=== PATIENT | male | born 1975 | race Caucasian/White ===

== ENCOUNTER 2016-07-15 15:46 | Inpatient (IN) | payer OTHER, MEDICAID ==
[2016-07-10 18:37] VITALS: BMI 25.8
[2016-07-16 08:08] LABS: CHOLESTEROL 134 mg/dL (130-200)
[2016-07-16 08:17] LABS: GLUCOSE,FASTING 86 mg/dL (65-110)
[2016-07-16] MEDS: Multivitamin Therapeutic Tab PO SCH (09:36)
--- NOTE | 2016-07-16 14:47 | PCM.PSYCH ---
Initial Psychiatric Evaluation - Initial Psychiatric Evaluation Type of Admission: Voluntary Legal Status: Capacity (atient has capacity to sign consent for treatment) Chief Complaint (in patient's own words): "I'm feeling very depressed, I am hopeless, I hear voiced telling me to kill myself" Patient's Reaction to Hospitalization: pt was transferred from the medical floor for evaluation and stabilization of depressive symptoms, possible psychosis, possible thoughts of harming self. History of Present Illness and Precipitating Events: shortly patient is 40 year old [place]ian male, long and debilitating h/o alcohol use disorder, h/o one psychiatric admission to the [facility] in 2016, pt is homeless, no social support, does not work, initially pt was admitted to the medical floor for alcohol withdrawal symptoms (pt was found intoxicated in public, pt also might have withdrawal seizures, pt was in , but refused to go to [facility] requested to go to [facility]), pt reported being depressed, suicidal ideation, pt was on 1:1 for suicide precaution, pt was stabilized from the medical standpoint, was transferred to the psychiatric inpatient unit for further evaluation and stabilization, observation and medication titration. Patient was seen today at the treatment team meeting, fair personal hygiene, fair ADLs. 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 Pt said he is stressed out about his financial situation, homelessness, drinking problems, medical problems as well as poor support. Pt said he was feeling depressed, hopeless and helpless, pt also reported to have suicidal thoughts to go to the pharmacy and buy sleeping pills and overdose on it. Pt said he hears voices "female and male, they are telling me to kill myself", pt said that he has no urge to harming self and contracted for safety. pt denied feeling anxious. vitals are stable, there is a fine tremor in UE. Past psych h/o: 3 months ago / [facility] for an SI attempt/overdosed on sleeping medication. Pt. also reported taking 31 pills of Remeron last month/ psych. admission with [facility], h/o detoxes and rehabs. Medical h/o: pt has seizure disorder, head trauma, alcohol withdrawals better. Social h/o: pt is homeless, alcoholic, no insurance, no family. pt denied using drugs, denied smoking Lab Results 07/16/16 07:30: Fasting Glucose 86, Triglycerides 57, Cholesterol 134, LDL Cholesterol Direct 55, HDL Cholesterol 47 Vital Signs Temp Pulse Resp BP 07/16/16 07:40 97.8 F 66 20 114/76 07/16/16 07:38 97.8 F 66 20 Current Medications: Active Medications Generic Name Dose Route Start Last Admin Trade Name Freq PRN Reason Stop Dose Admin Chlordiazepoxide 5 mg 07/15/16 17:10 07/15/16 21:23 Librium PO 5 mg Q8 PRN Administration Agitation Protocol Ferrous Sulfate 324 mg 07/15/16 18:00 07/16/16 13:42 Feosol PO 324 mg TID STEVE Administration Folic Acid 1 mg 07/16/16 08:00 07/16/16 09:36 Folic Acid PO 1 mg DAILY STEVE Administration Levetiracetam 500 mg 07/16/16 08:00 07/16/16 09:36 Keppra PO 500 mg BID STEVE Administration Lorazepam 1 mg 07/15/16 17:00 07/15/16 21:23 Ativan PO 1 mg Q3H PRN Administration Agitation Protocol Mirtazapine 30 mg 07/16/16 14:13 Remeron PO HS STEVE Multivitamins 1 tab 07/16/16 08:00 07/16/16 09:36 Thera Tab PO 1 tab DAILY STEVE Administration Quetiapine Fumarate 100 mg 07/15/16 22:00 07/15/16 21:23 Seroquel PO 100 mg HS STEVE Administration Protocol Quetiapine Fumarate 100 mg 07/16/16 08:00 07/16/16 09:37 Seroquel PO 100 mg DAILY STEVE Administration Protocol Thiamine HCl 100 mg 07/16/16 08:00 07/16/16 09:36 Vitamin B1 Tab PO 100 mg DAILY STEVE Administration Past Psychiatric History - Past Psychiatric History Previous Treatment History: Inpatient Prior Professional Help: see HPI Prior Psychiatric Treatment: see HPI At what hospital: see HPI Duration: see HPI Nature of Treatment: see HPI Explanation of prior treatment: ee HPI History of Abuse: denied History of ETOH/Drug Use: see HPI History of Family Illness: denied Pertinent Medical Hx (Current Medical&Sleep Prob, Allergies): Allergies Allergy/AdvReac Type Severity Reaction Status Date / Time No Known Allergies Allergy Verified 07/10/16 18:38 Ferrous Sulfate [Feosol] 324 mg PO TID ect 07/14/16 Folic Acid 1 mg PO DAILY tab 07/14/16 LORazepam [Ativan] 1 mg PO Q3 PRN #0 tab 07/14/16 Mirtazapine [Remeron] 15 mg PO HS tab 07/14/16 Multimineral/Multivitamin [Therapeutic-M Tab] 1 tab PO DAILY tab 07/14/16 QUEtiapine [Seroquel] 100 mg PO HS tab 07/14/16 Thiamine [Vitamin B1 Tab] 100 mg PO DAILY tab 07/14/16 chlordiazePOXIDE [Librium] 5 mg PO Q8 PRN #0 cap 07/14/16 levETIRAcetam [Keppra] 500 mg PO BID tab 07/14/16 Review of Systems - Review of Systems Systems not reviewed;Unavailable: Acuity of Condition - EENT Eyes: As Per HPI Ears: As Per HPI Nose/Mouth/Throat: As Per HPI - Cardiovascular Cardiovascular: As Per HPI - Respiratory Respiratory: As Per HPI - Gastrointestinal Gastrointestinal: As Per HPI - Genitourinary Genitourinary: As Per HPI - Reproductive: Male Reproductive:Male: As Per HPI - Musculoskeletal Musculoskeletal: As Par HPI - Integumentary Integumentary: As Per HPI - Neurological Neurological: As Per HPI - Psychiatric Psychiatric: As Per HPI - Endocrine Endocrine: As Per HPI - Hematologic/Lymphatic Hematologic: As Per HPI Mental Status Examination - Personal Presentation Personal Presentation: Looks stated age - Affect Affect: Flat - Motor Activity Motor Activity: Psychomotor Retardation - Reliability in Providing Information Reliability in Providing Information: Fair - Speech Speech: Organized - Mood Mood: Depressed, Anxious - Formal Thought Process Formal Thought Process: Hallucinations (patient reported hearing voices) - Hallucinations/Delusions Hallucinations: Auditory - Obsessions/Compulsions Obsessions: None Compulsions: None - Cognitive Functions Orientation: Person, Place, Situation Sensorium: Alert Attention/Concentration: Easily distracted Abstract Thinking: Krum Estimate of Intelligence: Average Judgement: Intact, as evidence by: Insight regarding need for hospitalization - Risk Risk: Suicidal, Seizure, Withdrawal, Diminished functioning - Strength & Assets Inventory Strength & Assets Inventory: Cooperative - Limitations Limitations: Other (Apple alcoholic a lot of social issues) DSM 5 DX - DSM 5 DSM 5 Diagnosis: rule out major depressive disorder Rule out substance-induced mood disorder Alcohol use disorder alcohol withdrawal symptoms - Recommended/Plan of Treatment Treatment Recommendations and Plan of Treatment: milieu, structure, supportive therapy Ferrous Sulfate [Feosol] 324 mg PO TID Folic Acid 1 mg PO DAILY Librium as needed for withdrawals Mirtazapine increased to 30 mg mg PO HS Multimineral/Multivitamin PO DAILY QUEtiapine [Seroquel] 100 mg PO amHS for psychotic symptoms and Thiamine 100 mg PO DAILY Keppra 500 mg PO BID for seizures Medical follow up 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 - Smoking Cessation Smoking Cessation Initiated: No Reason for not providing: pt denied smoking
--- NOTE | 2016-07-16 14:51 | CP.PCM.CON ---
<George Rice - Last Filed: 07/16/16 19:44> History of Present Illness - History of Present Illness History of Present Illness: 40M with pmh of depression, seizures, and alcohol abuse was admitted to the inpatient psych unit from recent hospital visit for alcohol withdrawal. During his stay in the hospital he expressed on multiple occasions that he wanted to end his life if he was allowed to return home by overdosing on medications. Today, he states that he feels good and he slept well. He complains of mild headache, slight dizziness, sore throat, and some numbness on his right hand. He is able to speak in complete sentences and ambulate to the restroom on his own. He denies changes in vision/hearing, chest pain, difficulty breathing, any abdominal pain or any GI/ symptoms. Review of Systems - Constitutional Constitutional: Headache (mild). absent: Chills, Fever - EENT Eyes: absent: Blurred Vision, Change in Vision Ears: absent: Decreased Hearing, Ear Pain Nose/Mouth/Throat: Nasal Congestion. absent: Epistaxis, Dysphagia - Cardiovascular Cardiovascular: absent: Chest Pain, Chest Pain at Rest, Diaphoresis, Dyspnea - Respiratory Respiratory: Cough. absent: Dyspnea, Pain on Inspiration, Chest Congestion, Pain with Coughing - Gastrointestinal Gastrointestinal: absent: Abdominal Pain, Diarrhea, Nausea, Vomiting - Genitourinary Genitourinary: absent: Difficulty Urinating, Dysuria, Flank Pain, Nocturia - Musculoskeletal Musculoskeletal: Numbness (right wrist). absent: Back Pain, Muscle Weakness - Integumentary Integumentary: absent: Dry Skin, Rash, Swelling, Unusual Bruising, Wounds - Neurological Neurological: Dizziness, Numbness (Right hand around the "snuff box" likely 2/2 alcohol abuse) - Psychiatric Psychiatric: Anhedonia, Depression - Endocrine Endocrine: absent: Cold Intolorance, Heat Intolorance, Palpitations, Polydipsia , Polyuria Past Patient History - Infectious Disease Hx of Infectious Diseases: None - Past Social History Smoking Status: Never Smoked Chewing Tobacco Use: No Cigar Use: No Alcohol: > 2 Drinks/Day Drugs: Denies Home Situation {Lives}: Alone - CARDIAC Hx Cardiac Disorders: No Hx Hypertension: No - PULMONARY Hx Tuberculosis: No - NEUROLOGICAL HX Cerebrovascular Accident: No Hx Seizures: Yes Other/Comment: epilepsy - HEMATOLOGICAL/ONCOLOGICAL Hx Cancer: No Hx Human Immunodeficiency Virus (HIV): No - MUSCULOSKELETAL/RHEUMATOLOGICAL Hx Falls: Yes - GENITOURINARY/GYNECOLOGICAL Hx Sexually Transmitted Disorders: No - PSYCHIATRIC Hx Anxiety: Yes Hx Depression: Yes Hx Substance Use: Yes (Alcohol) - SURGICAL HISTORY Hx Surgeries: No - ANESTHESIA Hx Anesthesia: No Hx Anesthesia Reactions: No Hx Malignant Hyperthermia: No Meds Allergies/Adverse Reactions: Allergies Allergy/AdvReac Type Severity Reaction Status Date / Time No Known Allergies Allergy Verified 07/17/16 04:12 - Medications Medications: Current Medications Chlordiazepoxide (Librium) 5 mg PO Q8 PRN; Protocol PRN Reason: Agitation Last Admin: 07/15/16 21:23 Dose: 5 mg Ferrous Sulfate (Feosol) 324 mg PO TID [facility] Last Admin: 07/16/16 13:42 Dose: 324 mg Folic Acid (Folic Acid) 1 mg PO DAILY [facility] Last Admin: 07/16/16 09:36 Dose: 1 mg Levetiracetam (Keppra) 500 mg PO BID [facility] Last Admin: 07/16/16 09:36 Dose: 500 mg Lorazepam (Ativan) 1 mg PO Q3H PRN; Protocol PRN Reason: Agitation Last Admin: 07/15/16 21:23 Dose: 1 mg Mirtazapine (Remeron) 30 mg PO HS [facility] Multivitamins (Thera Tab) 1 tab PO DAILY [facility] Last Admin: 07/16/16 09:36 Dose: 1 tab Quetiapine Fumarate (Seroquel) 100 mg PO HS [facility] PRN Reason: Protocol Last Admin: 07/15/16 21:23 Dose: 100 mg Quetiapine Fumarate (Seroquel) 100 mg PO DAILY [facility] PRN Reason: Protocol Last Admin: 07/16/16 09:37 Dose: 100 mg Thiamine HCl (Vitamin B1 Tab) 100 mg PO DAILY [facility] Last Admin: 07/16/16 09:36 Dose: 100 mg Physical Exam - Constitutional Appears: Non-toxic, No Acute Distress - Head Exam Head Exam: ATRAUMATIC, NORMOCEPHALIC - Eye Exam Eye Exam: EOMI - ENT Exam ENT Exam: Mucous Membranes Moist - Neck Exam Neck exam: Positive for: Full Rom. Negative for: Lymphadenopathy, Thyromegaly - Respiratory Exam Respiratory Exam: Clear to Auscultation Bilateral, NORMAL BREATHING PATTERN. absent: Wheezes, Respiratory Distress - Cardiovascular Exam Cardiovascular Exam: REGULAR RHYTHM, RRR, +S1, +S2. absent: JVD - GI/Abdominal Exam GI & Abdominal Exam: Normal Bowel Sounds, Soft. absent: Tenderness - Extremities Exam Extremities exam: Positive for: full ROM. Negative for: calf tenderness, joint swelling, pedal edema - Back Exam Back exam: FULL ROM. absent: CVA tenderness (L), CVA tenderness (R), paraspinal tenderness, rash noted - Neurological Exam Neurological exam: Alert, CN II-XII Intact, Oriented x3 - Psychiatric Exam Psychiatric exam: Depressed - Skin Skin Exam: Dry, Intact, Normal Color, Warm Results - Vital Signs Recent Vital Signs: Last Vital Signs Temp 97.8 F 07/16/16 07:40 Pulse 66 07/16/16 07:40 Resp 20 07/16/16 07:40 BP 114/76 07/16/16 07:40 Pulse Ox - Labs Labs: Laboratory Results - last 24 hr 07/16/16 07:30 Fasting Glucose 86 Triglycerides 57 Cholesterol 134 LDL Cholesterol Direct 55 HDL Cholesterol 47 Assessment & Plan - Assessment and Plan (Free Text) Assessment: 40M with pmh of depression, anxiety, seizure, alcohol abuse admitted for suicidal ideation with plan and depression being medically evaluated. Plan: History of Alcohol Abuse -Pt. able to ambulate without assistance -Pt. able to eat without assistance -Pt. able to use the restroom without assistance -Pt. does not exhibit tremulousness -Labs from 07/15 show no electrolyte abnormalities or elevated LFT's -Pt. on Thiamine, Folic Acid and a Multivitamin daily -Pt. on Librium prn and Ativan prn Anemia -Pt. on Feosol Seizures -Pt. does not complain of seizures -Pt. on Keppra Depression -Pt. admitted to Inpatient Psych Unit -Pt. on Remeron and Seroquel Pt. shows no signs of alcohol withdrawal, his electrolytes/LFT's are within normal limits, no signs of infection or leukocytosis, and vital signs are within normal limits.. CT head, Chest xray and EKG from 07/10 show no signs of acute abnormalities or disease. We will sign off from this patient. Please consult us again if any concerning symptoms arise. Thank you for allowing us to take part in his care. - Date & Time Date: 07/16/16 Time: 14:00 <Luis Eduardo Fernandes - Last Filed: 07/17/16 15:47> Meds - Medications Medications: Current Medications Ferrous Sulfate (Feosol) 324 mg PO TID [facility] Last Admin: 07/17/16 13:00 Dose: 324 mg Folic Acid (Folic Acid) 1 mg PO DAILY [facility] Last Admin: 07/17/16 10:05 Dose: 1 mg Levetiracetam (Keppra) 500 mg PO BID [facility] Last Admin: 07/17/16 10:05 Dose: 500 mg Lorazepam (Ativan) 1 mg PO Q3H PRN; Protocol PRN Reason: Agitation Last Admin: 07/17/16 14:14 Dose: 1 mg Mirtazapine (Remeron) 30 mg PO HS [facility] Last Admin: 07/16/16 21:42 Dose: 30 mg Multivitamins (Thera Tab) 1 tab PO DAILY [facility] Last Admin: 07/17/16 10:06 Dose: 1 tab Quetiapine Fumarate (Seroquel) 100 mg PO DAILY [facility] PRN Reason: Protocol Last Admin: 07/17/16 08:00 Dose: 100 mg Quetiapine Fumarate (Seroquel) 150 mg PO [facility] PRN Reason: Protocol Thiamine HCl (Vitamin B1 Tab) 100 mg PO DAILY [facility] Last Admin: 07/17/16 10:05 Dose: 100 mg Results - Vital Signs Recent Vital Signs: Last Vital Signs Temp 98.1 F 07/17/16 07:00 Pulse 65 07/17/16 07:00 Resp 20 07/17/16 07:00 BP 109/77 07/17/16 07:00 Pulse Ox - Labs Labs: Laboratory Results - last 24 hr 07/16/16 06:55 RPR Nonreactive Attending/Attestation - Attestation I have personally seen and examined this patient.: Yes I have fully participated in the care of the patient.: Yes I have reviewed all pertinent clinical information: Yes Notes (Text): I have seen and examined patient with the resident. Agree with the above note with the following additions/ exceptions: This is 40 year old male with history of major depression, alcohol abuse, past suicide attempt, homelessness who got admitted for alcohol withdrawal syndrome. He was also found to have iron deficiency anemia currently on ferrous sulfate tablets. Continue keppra. Manage depression as per psych. Upon discharge the patient will follow up with [facility]. Dr Luis Eduardo Fernandes
--- NOTE | 2016-07-17 09:02 | PCM.PYCHPN ---
Psychiatric Progress Note - Psychiatric Progress Note Patient seen today, length of contact: 25 min Patient Chief Complaint: "depressed" Problems Identified/Issues Discussed: I reviewed assessment recent notes. Patient was interviewed a bedside Patient is calm, fairly cooperative and oriented x3. He reports continued depression and hopelessness. His affect is constricted and tired. Indicates that he has been experiencing auditory hallucinations. Specifically patient reports that he hears voices that that tell him that "life is worthless and that he should kill himself". Patient admits to fleeting wishes and passive suicidal thoughts but denies having any active suicidal thoughts. He commits to contacting a staff member if he has any doubts about his self control in this respect. Patient denies any new concerns, discomfort or pain except for restless sleep last night. Specifically denies any withdrawal symptoms at this time and he does not appear to be in any distress. Patient's thought process is fairly coherent and responses, though brief are relevant to questioning. Delusions were not elicited during this initial interview. Patient indicates that he has been tolerating his medications. Nursing notes indicate that patient has been calm and quiet. Generally keeps himself but responsive with questioning. There were no behavioral issues overnight Diagnostic Results: rule out major depressive disorder Rule out substance-induced mood disorder Alcohol use disorder alcohol withdrawal symptoms Medication Change: Yes (Seroquel increased to 100/150 for c/o hallucinations) Medical Record Reviewed: Yes (reports, notes, vitals, labs) Mental Status Examination - Cognitive Function Orientation: Person, Place, Situation Attention: Poor Concentration: Poor - Mood Mood: Depressed, Anxious - Affect Affect: Flat - Speech Speech: Soft - Formal Thought Process Formal Thought Process: Hallucinations (patient reports that he hears voices that that tell him that "life is worthless and that he should kill himself".) - Suicidal Ideation Suicidal Ideation: Yes Plan: Patient admits to fleeting wishes and passive suicidal thoughts but denies having any active suicidal thoughts. He commits to contacting a staff members if he has any doubts about his self control in this respect. - Homicidal Ideation Homicidal Ideation: No Goal/Treatment Plan - Goal/Treatment Plan Need for Continued Stay: Remain at risks for inpatient hospitalization, Severe depression anxiety, Discharge may exacerbated symptoms, Severe functional impairment Progress Toward Problem(s) and Goals/Treatment Plan: * c/w group, milieu and supportive tx * Seroquel increased to 100/150 for c/o hallucinations on 07/17/16 * d/c Librium 5 mg po q8 prn, vitals stable and patient hasn't received a dose in over 24 hours * No new weekend labs * Vitals reviewed and noted below: Selected Entries 07/16/16 07:40 Temperature 97.8 F Pulse Rate 66 Respiratory 20 Rate Blood Pressure 114/76
[2016-07-17] MEDS: Multivitamin Therapeutic Tab PO SCH (10:06)
[2016-07-18] MEDS: Multivitamin Therapeutic Tab PO SCH (08:41)
--- NOTE | 2016-07-18 09:27 | PCM.PYCHPN ---
Psychiatric Progress Note - Psychiatric Progress Note Patient seen today, length of contact: 25 min Patient Chief Complaint: "depressed" Problems Identified/Issues Discussed: I reviewed recent notes and patient was interviewed at bedside. Patient is calm , fairly cooperative and oriented x3. He reports continued depression and hopelessness. His affect is preoccupied, constricted and tired. Indicates that he has been experiencing auditory hallucinations, unchanged from yesterday. Specifically hears voices that that tell him that "life is worthless" and "go kill yourself". Patient still admits to fleeting wishes and passive suicidal thoughts but denies having any active suicidal thoughts. Patient also informed staff about these thoughts yesterday. Remains committed to contacting staff members if he has any active suicidal thoughts or any doubts about his self control in this respect. Patient denies any new concerns, discomfort or pain. Tolerated increased dose of Seroquel last night and was able to sleep for 5 hours. Requests further increase in Seroquel for hallucinations and restless sleep. Again, he specifically denies any withdrawal symptoms and he does not appear to be in any distress in this regard. Patient's thought process is fairly coherent and responses, though brief are relevant to questioning. Delusions were not elicited this weekend. Patient indicates that he has been tolerating the rest of his medications. Nursing notes indicate that patient has been calm and quiet. Generally keeps himself but responsive with questioning. Not observed by this sports book writer or staff members to be responding to internal stimuli. There were no behavioral issues over the weekend. Diagnostic Results: rule out major depressive disorder Rule out substance-induced mood disorder Alcohol use disorder alcohol withdrawal symptoms Medication Change: Yes (Seroquel increased to 100/200 for c/o hallucinations on 07/18/16) Medical Record Reviewed: Yes (reports, notes, vitals, labs) Mental Status Examination - Cognitive Function Orientation: Person, Place, Situation Attention: Poor Concentration: Poor - Mood Mood: Depressed, Anxious - Affect Affect: Constricted, Flat - Speech Speech: Soft - Formal Thought Process Formal Thought Process: Hallucinations ( "life is worthless" and "go kill yourself".) - Suicidal Ideation Suicidal Ideation: Yes - Homicidal Ideation Homicidal Ideation: No Goal/Treatment Plan - Goal/Treatment Plan Need for Continued Stay: Remain at risks for inpatient hospitalization, Severe depression anxiety, Discharge may exacerbated symptoms, Severe functional impairment Progress Toward Problem(s) and Goals/Treatment Plan: * c/w group, milieu and supportive tx * Seroquel increased to 100/150 on 07/17/16 and to 100/200 on 07/18/16 for c/o hallucinations and poor sleep * d/c'ed Librium 5 mg po q8 prn on 07/17/16, vitals stable over the weekend * No new weekend labs * Vitals reviewed and noted below: Selected Entries 07/17/16 07/17/16 07:00 16:00 Temperature 98.1 F Pulse Rate 65 73 Respiratory 20 Rate Blood Pressure 109/77 111/72
[2016-07-19] MEDS: Multivitamin Therapeutic Tab PO SCH (08:26)
--- NOTE | 2016-07-19 17:09 | PCM.PYCHPN ---
Psychiatric Progress Note - Psychiatric Progress Note Patient seen today, length of contact: 30 minutes Patient Chief Complaint: "I'm feeling very depressed, because I'm hearing voices, this voices are telling me to kill myself, yesterday had thoughts of killing myself and I asked nurse to help me" Problems Identified/Issues Discussed: Suicide/ homicide prevention, past psychiatric h/o, current psychiatric symptoms , medical problems, risk/benefits and alternatives of medications, medications compliance, coping strategies, substance abuse h/o, relapse prevention, importance of follow up with psychiatrist and therapist, discharge plan. Medical Problems: pt has seizure disorder, head trauma, alcohol withdrawals better. Diagnostic Results: Lab Results 07/16/16 07:30: Fasting Glucose 86, Triglycerides 57, Cholesterol 134, LDL Cholesterol Direct 55, HDL Cholesterol 47 07/16/16 06:55: RPR Nonreactive Vital Signs Temp Pulse Resp BP 07/19/16 06:00 98.1 F 70 20 116/82 07/18/16 16:00 75 122/90 07/18/16 07:00 98.2 F 75 18 107/74 07/17/16 16:00 73 111/72 07/17/16 07:00 98.1 F 65 20 109/77 07/16/16 07:40 97.8 F 66 20 114/76 07/16/16 07:38 97.8 F 66 20 DSM 5 Symptoms Update: shortly patient is 40 year old [place] male, long and debilitating h/o alcohol use disorder, h/o one psychiatric admission to the [facility] in 2015, pt is homeless, no social support, does not work, initially pt was admitted to the medical floor for alcohol withdrawal symptoms (pt was found intoxicated in public, pt also might have withdrawal seizures, pt was in , but refused to go [place] [facility] [place] to go to [facility] pt reported being depressed, suicidal ideation, pt was on 1:1 for suicide precaution, pt was stabilized from the medical standpoint, was transferred to the psychiatric inpatient unit for further evaluation and stabilization, observation and medication titration. Patient was seen today at the treatment team room, good personal hygiene, good ADLs. patient complained of feeling depressed because of hearing voices, patient reported that he hears female and male voices telling him to hurt himself. Patient reported that he has strong feelings of hurting himself and approached nurse asking for help yesterday.patient requested Seroquel to be increased. patient reported that he came from [place] 8 years ago and he has education in economics. 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 Patient said that the main problem for him is "seizure disorder" at the same time patient reported that he had seizures only when he is withdrawing from alcohol. This advertising copywriter educated patient about alcohol withdrawal seizures and if he will be not drinking most likely he will not have seizures patient verbalized understanding. Patient has some hopes for the future and he is willing to go to [facility] inpatient rehabilitation. Patient reported that he is depression is little bit better to compare with the time of admission but "is not that great". patient reported having one brother who lives in [place], and he has no family members anywhere in the [facility]. patient tolerates medications well, no side effects observed or reported, no EPS aims 0. As per nursing report patient is in good behavioral control has fare appetite and sleep, started to go to groups. Diagnostic Results: rule out major depressive disorder Rule out substance-induced mood disorder Alcohol use disorder alcohol withdrawal symptoms Medication Change: Yes (Seroquel increased, Remeron increased.) Medical Record Reviewed: Yes (reports, notes, vitals, labs) Consults ordered or reviewed: medical consultation appreciated see Notes more detailed information Mental Status Examination - Cognitive Function Orientation: Person, Place, Situation Attention: Poor Concentration: Poor Association: Loose Fund of Knowledge: Poor - Mood Mood: Depressed, Anxious - Affect Affect: Constricted, Flat - Speech Speech: Soft - Formal Thought Process Formal Thought Process: Hallucinations ( "life is worthless" and "go kill yourself".) - Suicidal Ideation Suicidal Ideation: Yes Plan: denied intent or plan - Homicidal Ideation Homicidal Ideation: No Goal/Treatment Plan - Goal/Treatment Plan Need for Continued Stay: Remain at risks for inpatient hospitalization, Severe depression anxiety, Discharge may exacerbated symptoms, Severe functional impairment Progress Toward Problem(s) and Goals/Treatment Plan: milieu, structure, supportive therapy Ferrous Sulfate [Feosol] 324 mg PO TID Folic Acid 1 mg PO DAILY Librium as needed for withdrawals Mirtazapine increased to 45 mg mg PO HS ffor major depressive disorder and insomnia Multimineral/Multivitamin PO DAILY QUEtiapine [Seroquel] 200 mg at the morning time and 300 mg at the nighttime for psychotic symptoms Thiamine 100 mg PO DAILY Keppra 500 mg PO BID for seizures Medical follow up 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
[2016-07-20] MEDS: Multivitamin Therapeutic Tab PO SCH (08:44)
--- NOTE | 2016-07-20 14:46 | PCM.PYCHPN ---
Psychiatric Progress Note - Psychiatric Progress Note Patient seen today, length of contact: 30 minutes Patient Chief Complaint: "I heard voice at the morning, I was depressed because of that" Problems Identified/Issues Discussed: Suicide/ homicide prevention, past psychiatric h/o, current psychiatric symptoms , medical problems, risk/benefits and alternatives of medications, medications compliance, coping strategies, substance abuse h/o, relapse prevention, importance of follow up with psychiatrist and therapist, discharge plan. Medical Problems: pt has seizure disorder, head trauma, alcohol withdrawals better. Diagnostic Results: Lab Results 07/16/16 07:30: Fasting Glucose 86, Triglycerides 57, Cholesterol 134, LDL Cholesterol Direct 55, HDL Cholesterol 47 07/16/16 06:55: RPR Nonreactive Vital Signs Temp Pulse Resp BP 07/19/16 06:00 98.1 F 70 20 116/82 07/18/16 16:00 75 122/90 07/18/16 07:00 98.2 F 75 18 107/74 07/17/16 16:00 73 111/72 07/17/16 07:00 98.1 F 65 20 109/77 07/16/16 07:40 97.8 F 66 20 114/76 07/16/16 07:38 97.8 F 66 20 Temp Pulse Resp BP Pulse Ox 98.4 F 70 20 100/62 07/20/16 06:00 07/20/16 06:00 07/20/16 06:00 07/20/16 06:00 DSM 5 Symptoms Update: shortly patient is 40 year old male, long and debilitating h/o alcohol use disorder, h/o one psychiatric admission to the [facility] in 2015, pt is homeless, no social support, does not work, initially pt was admitted to the medical floor for alcohol withdrawal symptoms (pt was found intoxicated in public, pt also might have withdrawal seizures, pt was in , but refused to go [place] [facility] [place] to go to [facility] pt reported being depressed, suicidal ideation, pt was on 1:1 for suicide precaution, pt was stabilized from the medical standpoint, was transferred to the psychiatric inpatient unit for further evaluation and stabilization, observation and medication titration. Patient was seen today in his room, good personal hygiene, good ADLs. pt is less depressed, last time heard voice today at am, command type. tolerates meds well, no side effects. patient tolerates medications well, no side effects observed or reported, no EPS aims 0. As per nursing report patient is in good behavioral control has fare appetite and sleep, started to go to groups. Diagnostic Results: rule out major depressive disorder Rule out substance-induced mood disorder Alcohol use disorder alcohol withdrawal symptoms Medication Change: No (Seroquel increased, Remeron increased yesterday) Medical Record Reviewed: Yes (reports, notes, vitals, labs) Consults ordered or reviewed: medical consultation appreciated see Notes more detailed information Mental Status Examination - Cognitive Function Orientation: Person, Place, Situation Attention: Poor (some improvement) Concentration: Poor (some improvement) Association: Loose Fund of Knowledge: Poor - Mood Mood: Depressed, Anxious - Affect Affect: Constricted (some improvement More reactive today) - Speech Speech: Soft - Formal Thought Process Formal Thought Process: Hallucinations ( "life is worthless" and "go kill yourself".) - Suicidal Ideation Suicidal Ideation: No - Homicidal Ideation Homicidal Ideation: No Goal/Treatment Plan - Goal/Treatment Plan Need for Continued Stay: Remain at risks for inpatient hospitalization, Severe depression anxiety, Discharge may exacerbated symptoms, Severe functional impairment Progress Toward Problem(s) and Goals/Treatment Plan: milieu, structure, supportive therapy Ferrous Sulfate [Feosol] 324 mg PO TID Folic Acid 1 mg PO DAILY Librium as needed for withdrawals Mirtazapine increased to 45 mg mg PO HS ffor major depressive disorder and insomnia Multimineral/Multivitamin PO DAILY QUEtiapine [Seroquel] 200 mg at the morning time and 300 mg at the nighttime for psychotic symptoms Thiamine 100 mg PO DAILY Keppra 500 mg PO BID for seizures Medical follow up 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
[2016-07-21] MEDS: Multivitamin Therapeutic Tab PO SCH (08:37)
--- NOTE | 2016-07-21 15:40 | PCM.PYCHPN ---
Psychiatric Progress Note - Psychiatric Progress Note Patient seen today, length of contact: 30 minutes Patient Chief Complaint: "I was confused, I didn't know where I was, most likely I had seizures" Problems Identified/Issues Discussed: Suicide/ homicide prevention, past psychiatric h/o, current psychiatric symptoms , medical problems, risk/benefits and alternatives of medications, medications compliance, coping strategies, substance abuse h/o, relapse prevention, importance of follow up with psychiatrist and therapist, discharge plan. Medical Problems: pt has seizure disorder, head trauma, alcohol withdrawals better. Diagnostic Results: Lab Results 07/16/16 07:30: Fasting Glucose 86, Triglycerides 57, Cholesterol 134, LDL Cholesterol Direct 55, HDL Cholesterol 47 07/16/16 06:55: RPR Nonreactive Vital Signs Temp Pulse Resp BP 07/19/16 06:00 98.1 F 70 20 116/82 07/18/16 16:00 75 122/90 07/18/16 07:00 98.2 F 75 18 107/74 07/17/16 16:00 73 111/72 07/17/16 07:00 98.1 F 65 20 109/77 07/16/16 07:40 97.8 F 66 20 114/76 07/16/16 07:38 97.8 F 66 20 Temp Pulse Resp BP Pulse Ox 98.4 F 70 20 100/62 07/20/16 06:00 07/20/16 06:00 07/20/16 06:00 07/20/16 06:00 Temp Pulse Resp BP Pulse Ox 98.4 F 72 20 118/84 07/21/16 07:07 07/21/16 07:07 07/21/16 07:07 07/21/16 07:07 DSM 5 Symptoms Update: shortly patient is 40 year old male, long and debilitating h/o alcohol use disorder, h/o one psychiatric admission to the [facility] in 2016, pt is homeless, no social support, does not work, initially pt was admitted to the medical floor for alcohol withdrawal symptoms (pt was found intoxicated in public, pt also might have withdrawal seizures, pt was in , but refused to go to [facility] requested to go to [facility] pt reported being depressed, suicidal ideation, pt was on 1:1 for suicide precaution, pt was stabilized from the medical standpoint, was transferred to the psychiatric inpatient unit for further evaluation and stabilization, observation and medication titration. Patient was seen today next to the nursing station, good personal hygiene, good ADLs. pt is less depressed, last time heard voice today at am, noncommand type, c/o confusion at am, will be seen by medical team and neurology. patient tolerates medications well, no side effects observed or reported, no EPS aims 0. As per nursing report patient is in good behavioral control has fare appetite and sleep, started to go to groups. Diagnostic Results: rule out major depressive disorder Rule out substance-induced mood disorder Alcohol use disorder alcohol withdrawal symptoms Medication Change: No (Seroquel increased, Remeron increased yesterday) Medical Record Reviewed: Yes (reports, notes, vitals, labs) Consults ordered or reviewed: medical consultation appreciated see Notes more detailed information Mental Status Examination - Cognitive Function Orientation: Person, Place, Situation Attention: Poor (some improvement) Concentration: Poor (some improvement) Association: WNL Fund of Knowledge: WNL - Mood Mood: Depressed (less), Anxious (less) - Affect Affect: Constricted (some improvement More reactive today) - Speech Speech: Soft - Formal Thought Process Formal Thought Process: Hallucinations (nonspecific) - Suicidal Ideation Suicidal Ideation: No - Homicidal Ideation Homicidal Ideation: No Goal/Treatment Plan - Goal/Treatment Plan Need for Continued Stay: Remain at risks for inpatient hospitalization, Severe depression anxiety, Discharge may exacerbated symptoms, Severe functional impairment Progress Toward Problem(s) and Goals/Treatment Plan: milieu, structure, supportive therapy Ferrous Sulfate [Feosol] 324 mg PO TID Folic Acid 1 mg PO DAILY Librium as needed for withdrawals Mirtazapine 45 mg mg PO HS ffor major depressive disorder and insomnia Multimineral/Multivitamin PO DAILY QUEtiapine [Seroquel] 200 mg at the morning time and 300 mg at the nighttime for psychotic symptoms Thiamine 100 mg PO DAILY Keppra 500 mg PO BID for seizures Medical follow up 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
--- NOTE | 2016-07-21 16:14 | CP.PCM.PN ---
<George Rice - Last Filed: 07/21/16 16:02> Subjective - Date & Time of Evaluation Date of Evaluation: 07/21/16 Time of Evaluation: 16:00 - Subjective Subjective: 40M with pmh of alcohol abuse and seizures complains of a brief episode of confusion this morning. At approximately 12:00am he woke up confused and vomited. He did not know where he was. His roommate explained to him that he was at the psych unit in the hospital and the pt. went back to bed. He then woke up after the nurse came in to check morning vitals. He was confused and walked up to the nursing station and they explained to him that he was in the psych unit and he was being treated here. He then went to eat breakfast. A few hours later he said he was able to remember why he was in the hospital and how long he had been here. On exam the patient was A & O x 3 and able to recall his previous hospital admission, his medical conditions. He only complained of a mild headache. He denied changes in vision/hearing, chest pain, difficulty breathing, abdominal pain, N/V/D or back pain. Objective - Vital Signs/Intake and Output Vital Signs (last 24 hours): Temp Pulse Resp BP Pulse Ox 98.4 F 72 20 118/84 07/21/16 07:07 07/21/16 07:07 07/21/16 07:07 07/21/16 07:07 - Medications Medications: Current Medications Ferrous Sulfate (Feosol) [address] [facility] Last Admin: 07/21/16 13:38 Dose: 324 mg Folic Acid (Folic Acid) [address] [facility] Last Admin: 07/21/16 08:38 Dose: 1 mg Levetiracetam (Keppra) [address] [facility] Last Admin: 07/21/16 08:38 Dose: 500 mg Lorazepam (Ativan) 1 mg PO Q3H PRN; Protocol PRN Reason: Agitation Last Admin: 07/21/16 11:49 Dose: 1 mg Mirtazapine (Remeron) [address] [facility] Last Admin: 07/20/16 21:08 Dose: 45 mg Multivitamins (Thera Tab) [address] [facility] Last Admin: 07/21/16 08:37 Dose: 1 tab Quetiapine Fumarate (Seroquel) 200 mg PO DAILY [facility] PRN Reason: Protocol Last Admin: 07/21/16 08:38 Dose: 200 mg Quetiapine Fumarate (Seroquel) 300 mg PO HS [facility] PRN Reason: Protocol Last Admin: 07/20/16 21:08 Dose: 300 mg Thiamine HCl (Vitamin B1 Tab) 100 mg PO DAILY [facility] Last Admin: 07/21/16 08:37 Dose: 100 mg Ziprasidone (Geodon Cap) 20 mg PO Q6H PRN; Protocol PRN Reason: Psychosis Last Admin: 07/20/16 21:09 Dose: 20 mg - Constitutional Appears: Well, Non-toxic, No Acute Distress - Head Exam Head Exam: ATRAUMATIC, NORMOCEPHALIC - Eye Exam Eye Exam: EOMI Pupil Exam: NORMAL ACCOMODATION - ENT Exam ENT Exam: Mucous Membranes Moist - Neck Exam Neck Exam: Full ROM, Normal Inspection - Respiratory Exam Respiratory Exam: Clear to Ausculation Bilateral, NORMAL BREATHING PATTERN. absent: Rhonchi, Wheezes - Cardiovascular Exam Cardiovascular Exam: REGULAR RHYTHM, RRR, +S1, +S2. absent: JVD - GI/Abdominal Exam GI & Abdominal Exam: Soft, Normal Bowel Sounds. absent: Tenderness - Rectal Exam Rectal Exam: NORMAL INSPECTION - Extremities Exam Extremities Exam: Full ROM, Normal Inspection. absent: Joint Swelling, Pedal Edema Additional comments: dermatomes intact - Back Exam Back Exam: NORMAL INSPECTION - Neurological Exam Neurological Exam: Alert, Awake, CN II-XII Intact, Normal Gait, Oriented x3 Neuro motor strength exam: Left Upper Extremity: 5, Right Upper Extremity: 5, Left Lower Extremity: 5, Right Lower Extremity: 5 - Psychiatric Exam Psychiatric exam: Normal Affect, Normal Mood Additional comments: No focal neural deficits - Skin Skin Exam: Dry, Intact, Normal Color, Warm Assessment and Plan - Assessment and Plan (Free Text) Assessment: 40M with brief episode of confusion Plan: Brief Episode of Confusion: ROS and Physical Exam unremarkable with no focal neural deficits Head CT - ordered Follow Neuro recommendations <Bri Mazariegos - Last Filed: 07/21/16 18:32> Objective - Vital Signs/Intake and Output Vital Signs (last 24 hours): Temp Pulse Resp BP Pulse Ox 98.4 F 95 H 20 140/85 07/21/16 07:07 07/21/16 16:00 07/21/16 07:07 07/21/16 16:00 - Medications Medications: Current Medications Ferrous Sulfate (Feosol) [address] [facility] Last Admin: 07/21/16 17:24 Dose: 324 mg Folic Acid (Folic Acid) [address] [facility] Last Admin: 07/21/16 08:38 Dose: 1 mg Levetiracetam (Keppra) [address] [facility] Last Admin: 07/21/16 17:24 Dose: 500 mg Lorazepam (Ativan) 1 mg PO Q3H PRN; Protocol PRN Reason: Agitation Last Admin: 07/21/16 11:49 Dose: 1 mg Mirtazapine (Remeron) [address] [facility] Last Admin: 07/20/16 21:08 Dose: 45 mg Multivitamins (Thera Tab) [address] [facility] Last Admin: 07/21/16 08:37 Dose: 1 tab Quetiapine Fumarate (Seroquel) [address] [facility] PRN Reason: Protocol Last Admin: 07/21/16 08:38 Dose: 200 mg Quetiapine Fumarate (Seroquel) [address] [facility] PRN Reason: Protocol Last Admin: 07/20/16 21:08 Dose: 300 mg Thiamine HCl (Vitamin B1 Tab) [address] [facility] Last Admin: 07/21/16 08:37 Dose: 100 mg Ziprasidone (Geodon Cap) 20 mg PO Q6H PRN; Protocol PRN Reason: Psychosis Last Admin: 07/20/16 21:09 Dose: 20 mg Assessment and Plan - Assessment and Plan (Free Text) Assessment: Attending note; patient seen and examined with resident in psychiatric floor. Patient is a 40-year-old male with a history of alcohol abuse, seizure disorder , depression is admitted to the psychiatric floor for suicidal ideation. patient had an episode of confusion late last night and this morning. Currently patient is completely alert, awake and oriented. No focal neurological deficit. CT head ordered. Continue Keppra for seizure disorder. Neurology evaluation requested. alcohol abuse; complete alcohol cessation is strongly advised. Continue multivitamin, thiamine, folic acid. Case discussed with social work case manager in detail. continue anti-psychotic medication per psychiatrist. Case discussed with Dr. Bee in detail. Attending/Attestation - Attestation I have personally seen and examined this patient.: Yes I have fully participated in the care of the patient.: Yes I have reviewed all pertinent clinical information, including history, physical exam and plan: Yes
--- NOTE | 2016-07-22 07:21 | CT ---
PROCEDURE: CT HEAD WITHOUT CONTRAST. HISTORY: confusion COMPARISON: 07/11/2016. TECHNIQUE: Axial computed tomography images were obtained through the head/brain without intravenous contrast. Radiation dose: Total exam DLP = 822.02 mGy-cm. FINDINGS: HEMORRHAGE: No intracranial hemorrhage. BRAIN: No mass effect or edema. Stable right frontal atrophy. VENTRICLES: Unremarkable. No hydrocephalus. CALVARIUM: Stable post craniotomy findings. These affect the left frontal bone PARANASAL SINUSES: Unremarkable as visualized. No significant inflammatory changes. MASTOID AIR CELLS: Unremarkable as visualized. No inflammatory changes. OTHER FINDINGS: None. IMPRESSION: No acute intracranial abnormalities. No significant findings to account for the clinical presentation. No significant interval change compared to the prior examination(s).
[2016-07-22] MEDS: Multivitamin Therapeutic Tab PO SCH (08:12)
--- NOTE | 2016-07-22 12:29 | PCM.PYCHPN ---
Psychiatric Progress Note - Psychiatric Progress Note Patient seen today, length of contact: 30 minutes Patient Chief Complaint: "I feel okay, but voices are bothering me" Problems Identified/Issues Discussed: Suicide/ homicide prevention, past psychiatric h/o, current psychiatric symptoms , medical problems, risk/benefits and alternatives of medications, medications compliance, coping strategies, substance abuse h/o, relapse prevention, importance of follow up with psychiatrist and therapist, discharge plan. Medical Problems: pt has seizure disorder, head trauma, alcohol withdrawals better. Diagnostic Results: Lab Results 07/16/16 07:30: Fasting Glucose 86, Triglycerides 57, Cholesterol 134, LDL Cholesterol Direct 55, HDL Cholesterol 47 07/16/16 06:55: RPR Nonreactive Vital Signs Temp Pulse Resp BP 07/19/16 06:00 98.1 F 70 20 116/82 07/18/16 16:00 75 122/90 07/18/16 07:00 98.2 F 75 18 107/74 07/17/16 16:00 73 111/72 07/17/16 07:00 98.1 F 65 20 109/77 07/16/16 07:40 97.8 F 66 20 114/76 07/16/16 07:38 97.8 F 66 20 Temp Pulse Resp BP Pulse Ox 98.4 F 70 20 100/62 07/20/16 06:00 07/20/16 06:00 07/20/16 06:00 07/20/16 06:00 Temp Pulse Resp BP Pulse Ox 98.4 F 72 20 118/84 07/21/16 07:07 07/21/16 07:07 07/21/16 07:07 07/21/16 07:07 Temp Pulse Resp BP Pulse Ox 98.4 F 88 20 124/85 07/22/16 10:24 07/22/16 10:24 07/22/16 10:24 07/22/16 10:24 DSM 5 Symptoms Update: shortly patient is 40 year old male, long and debilitating h/o alcohol use disorder, h/o one psychiatric admission to the [facility] in 2015, pt is homeless, no social support, does not work, initially pt was admitted to the medical floor for alcohol withdrawal symptoms (pt was found intoxicated in public, pt also might have withdrawal seizures, pt was in , but refused to go to [facility] [place] [facility] [place] pt reported being depressed, suicidal ideation, pt was on 1:1 for suicide precaution, pt was stabilized from the medical standpoint, was transferred to the psychiatric inpatient unit for further evaluation and stabilization, observation and medication titration. Patient was seen today next to the nursing station, good personal hygiene, good ADLs. pt is less depressed, last time heard voice today at am, noncommand type, pt c/ o confusion yesterday, was seen by medical team, CT of head was done, no changes , pt will be seen by neurologist. pt asked Seroquel to be increased because of the "voices". patient tolerates medications well, no side effects observed or reported, no EPS aims 0. As per nursing report patient is in good behavioral control has fare appetite and sleep, started to go to groups. Diagnostic Results: rule out major depressive disorder Rule out substance-induced mood disorder Alcohol use disorder alcohol withdrawal symptoms Medication Change: Yes (seroquel increased) Medical Record Reviewed: Yes (reports, notes, vitals, labs) Consults ordered or reviewed: medical consultation appreciated see Notes more detailed information Mental Status Examination - Cognitive Function Orientation: Person, Place, Situation Attention: Poor (improving) Concentration: Poor (improving) Association: WNL Fund of Knowledge: WNL - Mood Mood: Depressed (less), Anxious (less) - Affect Affect: Constricted (some improvement More reactive today) - Speech Speech: Soft - Formal Thought Process Formal Thought Process: Hallucinations (nonspecific) - Suicidal Ideation Suicidal Ideation: No - Homicidal Ideation Homicidal Ideation: No Goal/Treatment Plan - Goal/Treatment Plan Need for Continued Stay: Remain at risks for inpatient hospitalization, Severe depression anxiety, Discharge may exacerbated symptoms, Severe functional impairment Progress Toward Problem(s) and Goals/Treatment Plan: milieu, structure, supportive therapy Ferrous Sulfate [Feosol] 324 mg PO TID Folic Acid 1 mg PO DAILY Mirtazapine 45 mg mg PO HS ffor major depressive disorder and insomnia Multimineral/Multivitamin PO DAILY QUEtiapine [Seroquel] 300 mg at the morning time and 300 mg at the nighttime for psychotic symptoms Thiamine 100 mg PO DAILY Keppra 500 mg PO BID for seizures Medical follow up 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
[2016-07-23] MEDS: Multivitamin Therapeutic Tab PO SCH (09:28)
--- NOTE | 2016-07-23 12:23 | CON ---
DATE: 07/23/2016 REASON FOR CONSULTATION: Seizure. HISTORY OF PRESENT ILLNESS: The patient is a 40-year-old male who has been asked for evaluation of nam nye. The patient said his seizure started after he had a head trauma about 8 years ago. He has had seizures on and off. He has been on Keppra 500 mg twice a day. His last seizure was 2 days ago. Apparently, he thinks he missed his dose. Prior to that, he had another seizure a few weeks ago. At that time, he continues to take his medication and did not miss any dose. The patient said that, when he had the seizure, after that he was very confused. He also said he has memory problems after the head trauma. REVIEW OF SYSTEMS: Denies any headache, dizziness, chest pain, shortness of breath, abdominal pain, constipation, diarrhea, dysuria, pyuria, cough or sputum production. PAST MEDICAL HISTORY: Includes seizures, history of head trauma. CURRENT MEDICATIONS: Include Ativan p.r.n., ferrous sulfate, valproic acid, Geodon, Keppra, Remeron, Seroquel, Tylenol and vitamin B1. ALLERGIES: No known drug allergies. SOCIAL HISTORY: The patient is a nonsmoker. He does drink alcohol. Denies use of any illicit drugs . FAMILY HISTORY: Noncontributory. PHYSICAL EXAMINATION: GENERAL: The patient is a middle-aged male sitting in no acute distress. VITAL SIGNS: Blood pressure is 119/87, heart rate is 77 per minute, breathing at a rate of 16 per mi nute, temperature is 98.3 degrees Fahrenheit. HEENT: Normocephalic, atraumatic. NECK: Supple. There are no carotid bruits. LUNGS: Clear. CARDIOVASCULAR: S1, S2 audible. No murmurs. ABDOMEN: Soft, nontender, bowel sounds present. NEUROLOGIC EXAMINATION: MENTAL STATUS: The patient is awake, alert, oriented to time, place, person. Speech is fluent. Nam ing and repetition normal. Memory and cognition appear intact. CRANIAL NERVE: Pupils are 4 mm, bilaterally reactive to light. Visual sommers are full. Extraocular movements are intact. There is no facial asymmetry. Palate is upgoing bilaterally and tongue is mi dline. MOTOR: Tone is normal. Power is 5/5 bilaterally in all extremities. Reflexes +2 and symmetrical. Plantars downgoing bilaterally. CEREBELLAR: [id number] shows no dysmetria. Gait is narrow based. Romberg is negative. LABORATORY DATA: Reviewed, shows RPR nonreactive. IMPRESSION: 1. Status post breakthrough seizure with history of seizures. 2. Memory loss. 3. History of traumatic brain injury. RECOMMENDATIONS: 1. The patient's Keppra is to be continued; however, I will increase the dose of Keppra to 750 mg tw ice a day. 2. Consider obtaining vitamin B12, T4, and TSH levels. 3. His memory loss is likely secondary to his head trauma as well. 4. Please continue supportive care and other treatment. Thank you for the opportunity to participate in the care of this patient. Tomy Fernandes MD cc: [id number] TT: 07/23/2016 12:22:41 Confirmation # [id number] Dictation # [id number] tn
--- NOTE | 2016-07-23 16:19 | PCM.PYCHPN ---
Psychiatric Progress Note - Psychiatric Progress Note Patient seen today, length of contact: 30 minutes Patient Chief Complaint: "I feel okay, thank you" Problems Identified/Issues Discussed: Suicide/ homicide prevention, past psychiatric h/o, current psychiatric symptoms , medical problems, risk/benefits and alternatives of medications, medications compliance, coping strategies, substance abuse h/o, relapse prevention, importance of follow up with psychiatrist and therapist, discharge plan. Medical Problems: pt has seizure disorder, head trauma, alcohol withdrawals better. Diagnostic Results: Lab Results 07/16/16 07:30: Fasting Glucose 86, Triglycerides 57, Cholesterol 134, LDL Cholesterol Direct 55, HDL Cholesterol 47 07/16/16 06:55: RPR Nonreactive Vital Signs Temp Pulse Resp BP 07/19/16 06:00 98.1 F 70 20 116/82 07/18/16 16:00 75 122/90 07/18/16 07:00 98.2 F 75 18 107/74 07/17/16 16:00 73 111/72 07/17/16 07:00 98.1 F 65 20 109/77 07/16/16 07:40 97.8 F 66 20 114/76 07/16/16 07:38 97.8 F 66 20 Temp Pulse Resp BP Pulse Ox 98.4 F 70 20 100/62 07/20/16 06:00 07/20/16 06:00 07/20/16 06:00 07/20/16 06:00 Temp Pulse Resp BP Pulse Ox 98.4 F 72 20 118/84 07/21/16 07:07 07/21/16 07:07 07/21/16 07:07 07/21/16 07:07 Temp Pulse Resp BP Pulse Ox 98.4 F 88 20 124/85 07/22/16 10:24 07/22/16 10:24 07/22/16 10:24 07/22/16 10:24 Temp Pulse Resp BP Pulse Ox 98.3 F 77 20 119/87 07/23/16 06:00 07/23/16 06:00 07/23/16 06:00 07/23/16 06:00 DSM 5 Symptoms Update: shortly patient is 40 year old male, long and debilitating h/o alcohol use disorder, h/o one psychiatric admission to the [facility] in 2015, pt is homeless, no social support, does not work, initially pt was admitted to the medical floor for alcohol withdrawal symptoms (pt was found intoxicated in public, pt also might have withdrawal seizures, pt was in , but refused to go to [facility] [place] [facility] [place] pt reported being depressed, suicidal ideation, pt was on 1:1 for suicide precaution, pt was stabilized from the medical standpoint, was transferred to the psychiatric inpatient unit for further evaluation and stabilization, observation and medication titration. Patient was seen today next to the nursing station, good personal hygiene, good ADLs. pt is less depressed, voices some better, noncommand type, patient was seen by neurology team, Keppra was increased. patient reported that he gave a call to his charge, and most likely he will be accepted by charge for temporarily living there. patient tolerates medications well, no side effects observed or reported, no EPS aims 0. As per nursing report patient is in good behavioral control has fare appetite and sleep, started to go to groups. Diagnostic Results: rule out major depressive disorder Rule out substance-induced mood disorder Alcohol use disorder alcohol withdrawal symptoms Medication Change: Yes (keppra increased) Medical Record Reviewed: Yes (reports, notes, vitals, labs) Consults ordered or reviewed: medical consultation appreciated see Notes more detailed information Neurology consult appreciated Mental Status Examination - Cognitive Function Orientation: Person, Place, Situation Attention: Poor (improving) Concentration: Poor (improving) Association: WNL Fund of Knowledge: WNL - Mood Mood: Depressed (less), Anxious (less) - Affect Affect: Constricted (some improvement More reactive today) - Speech Speech: Soft - Formal Thought Process Formal Thought Process: Hallucinations (nonspecific) - Suicidal Ideation Suicidal Ideation: No - Homicidal Ideation Homicidal Ideation: No Goal/Treatment Plan - Goal/Treatment Plan Need for Continued Stay: Remain at risks for inpatient hospitalization, Severe depression anxiety, Discharge may exacerbated symptoms, Severe functional impairment Progress Toward Problem(s) and Goals/Treatment Plan: milieu, structure, supportive therapy Ferrous Sulfate [Feosol] 324 mg PO TID Folic Acid 1 mg PO DAILY Mirtazapine 45 mg mg PO HS ffor major depressive disorder and insomnia Multimineral/Multivitamin PO DAILY QUEtiapine [Seroquel] 300 mg at the morning time and 300 mg at the nighttime for psychotic symptoms Thiamine 100 mg PO DAILY Keppra 750 mg PO BID for seizures Medical follow up 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
[2016-07-24] MEDS: Multivitamin Therapeutic Tab PO SCH (08:53)
--- NOTE | 2016-07-24 09:02 | PCM.PYCHPN ---
Psychiatric Progress Note - Psychiatric Progress Note Patient seen today, length of contact: 25 minutes Patient Chief Complaint: "depressed" Problems Identified/Issues Discussed: I reviewed recent notes, patient is known to me from prior interviews during this admission. I met with patient at bedside. Patient remains depressed however indicate that mood has been improving. Affect is constricted though a little more reactive than last week. He still appears preoccupied but not responding to internal stimuli. Hallucinations have reportedly improved in frequency and intensity though patient still reports that he feels distressed by them. He is no longer suicidal and denies any thoughts to harm others. He continues to tolerate his medications and reports that sleep was "okay" last night. Staff notes indicate that patient appears to be improving. He appears brighter and reports that he is feeling better. Patient is visible on the unit and has been attending groups. There were no behavioral issues overnight R Diagnostic Results: rule out major depressive disorder Rule out substance-induced mood disorder Alcohol use disorder alcohol withdrawal symptoms Medication Change: No ( ) Medical Record Reviewed: Yes (reports, notes, vitals, labs) Mental Status Examination - Cognitive Function Orientation: Person, Place, Situation Attention: Poor (improving) Concentration: Poor (improving) Association: WNL Fund of Knowledge: WNL - Mood Mood: Depressed (less), Anxious (less) - Affect Affect: Constricted (some improvement More reactive today) - Speech Speech: Soft - Formal Thought Process Formal Thought Process: Hallucinations (nonspecific) - Suicidal Ideation Suicidal Ideation: No - Homicidal Ideation Homicidal Ideation: No Goal/Treatment Plan - Goal/Treatment Plan Need for Continued Stay: Remain at risks for inpatient hospitalization, Severe depression anxiety, Discharge may exacerbated symptoms, Severe functional impairment Progress Toward Problem(s) and Goals/Treatment Plan: * c/w group, milieu and supportive tx * No new weekend labs * Vitals reviewed and noted below: Selected Entries 07/23/16 07/23/16 06:00 16:00 Temperature 98.3 F Pulse Rate 77 74 Respiratory 20 Rate Blood Pressure 119/87 102/69 Estimated Date of D/C: 07/26/16 (we'll monitor closely)
[2016-07-25 07:37] VITALS: RESP 20
[2016-07-25] MEDS: Multivitamin Therapeutic Tab PO SCH (08:19)
--- NOTE | 2016-07-25 09:03 | PCM.PYCHPN ---
Psychiatric Progress Note - Psychiatric Progress Note Patient seen today, length of contact: 25 minutes Patient Chief Complaint: "depressed" Problems Identified/Issues Discussed: I reviewed recent notes and met with patient at bedside. Patient still reports feeling depressed and has anxiety about discharge planning. He feels better since admission and he isn't hopeless or suicidal. However patient endorses continued hallucinations of voice telling him that "you're no good, hurt yourself". Hallucinations have reportedly improved in frequency and intensity though patient still feels distressed by them. His affect is constricted though more reactive than last week. He still appears preoccupied however this providers has never observed him to be responding to internal stimuli. He continues to tolerate his medications and reports that sleep was restless last night. Agrees to increase in Seroquel. Staff notes also indicate that patient has been visible on the unit and has been attending groups. Socializing at times. There were no behavioral issues over the weekend Diagnostic Results: rule out major depressive disorder Rule out substance-induced mood disorder Alcohol use disorder alcohol withdrawal symptoms Medication Change: Yes (Increased Seroquel to 325/350 on 07/25/16 for continued hallucinations) Medical Record Reviewed: Yes (reports, notes, vitals, labs) Mental Status Examination - Cognitive Function Orientation: Person, Place, Situation Attention: Poor (improving) Concentration: Poor (improving) Association: WNL Fund of Knowledge: WNL - Mood Mood: Depressed (less), Anxious (less) - Affect Affect: Constricted (some improvement More reactive today) - Speech Speech: Soft - Formal Thought Process Formal Thought Process: Hallucinations ( "you're no good, hurt yourself") - Suicidal Ideation Suicidal Ideation: No - Homicidal Ideation Homicidal Ideation: No Goal/Treatment Plan - Goal/Treatment Plan Need for Continued Stay: Remain at risks for inpatient hospitalization, Severe depression anxiety, Discharge may exacerbated symptoms, Severe functional impairment Progress Toward Problem(s) and Goals/Treatment Plan: * c/w group, milieu and supportive tx * Increased Seroquel to 325/350 on 07/25/16 for continued hallucinations * No new weekend labs * Vitals reviewed and noted below: Selected Entries 07/25/16 07:36 Temperature 98.3 F Pulse Rate 65 Respiratory 20 Rate Blood Pressure 124/86 Estimated Date of D/C: 07/26/16 (we'll monitor closely)
[2016-07-26] MEDS: Multivitamin Therapeutic Tab PO SCH (08:10)
--- NOTE | 2016-07-26 13:44 | PCM.PYCHPN ---
Psychiatric Progress Note - Psychiatric Progress Note Patient seen today, length of contact: 30min Patient Chief Complaint: "Doctor, please give me another day, I will be better, I will have secure place to go by tomorrow". Problems Identified/Issues Discussed: Suicide/ homicide prevention, past psychiatric h/o, current psychiatric symptoms , medical problems, risk/benefits and alternatives of medications, medications compliance, coping strategies, substance abuse h/o, relapse prevention, importance of follow up with psychiatrist and therapist, discharge plan. Medical Problems: pt has seizure disorder, head trauma, alcohol withdrawals better. Diagnostic Results: Lab Results 07/16/16 07:30: Fasting Glucose 86, Triglycerides 57, Cholesterol 134, LDL Cholesterol Direct 55, HDL Cholesterol 47 07/16/16 06:55: RPR Nonreactive Vital Signs Temp Pulse Resp BP 07/19/16 06:00 98.1 F 70 20 116/82 07/18/16 16:00 75 122/90 07/18/16 07:00 98.2 F 75 18 107/74 07/17/16 16:00 73 111/72 07/17/16 07:00 98.1 F 65 20 109/77 07/16/16 07:40 97.8 F 66 20 114/76 07/16/16 07:38 97.8 F 66 20 Temp Pulse Resp BP Pulse Ox 98.4 F 70 20 100/62 07/20/16 06:00 07/20/16 06:00 07/20/16 06:00 07/20/16 06:00 Temp Pulse Resp BP Pulse Ox 98.4 F 72 20 118/84 07/21/16 07:07 07/21/16 07:07 07/21/16 07:07 07/21/16 07:07 Temp Pulse Resp BP Pulse Ox 98.4 F 88 20 124/85 07/22/16 10:24 07/22/16 10:24 07/22/16 10:24 07/22/16 10:24 Temp Pulse Resp BP Pulse Ox 98.3 F 77 20 119/87 07/23/16 06:00 07/23/16 06:00 07/23/16 06:00 07/23/16 06:00 Temp Pulse Resp BP Pulse Ox 98.2 F 89 20 114/80 07/26/16 07:48 07/26/16 07:48 07/26/16 07:48 07/26/16 07:48 DSM 5 Symptoms Update: shortly patient is 40 year old [place] male, long and debilitating h/o alcohol use disorder, h/o one psychiatric admission to the [facility] in 2016, pt is homeless, no social support, does not work, initially pt was admitted to the medical floor for alcohol withdrawal symptoms (pt was found intoxicated in public, pt also might have withdrawal seizures, pt was in , but [place] [facility] [place] [facility] [place] pt reported being depressed, suicidal ideation, pt was on 1:1 for suicide precaution, pt was stabilized from the medical standpoint, was transferred to the psychiatric inpatient unit for further evaluation and stabilization, observation and medication titration. Patient was seen today the treatment team meeting, patient presented with good personal hygiene, good ADLs. pt is less depressed, voices "better", patient does not present to be psychotic , or responding to internal stimuli. At the same time patient is saying that he is hearing voices and voices are telling him to kill himself. At this point patient seems to be malingering, secondary gain cannot be excluded. 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 passementerie worker gave a call to the [facility] there is no answer yet. Pt reported that he most likely he will be accepted by [facility] for temporarily living. as per staff patient was pleasant, corporative, has good appetite, good night sleep. patient tolerates medications well, no side effects observed or reported, no EPS aims 0. As per nursing report patient is in good behavioral control has fare appetite and sleep, started to go to groups. Diagnostic Results: rule out major depressive disorder Rule out substance-induced mood disorder Alcohol use disorder alcohol withdrawal symptoms Medication Change: Yes (Seroquel 300 mg at the morning time 400 mg at the nighttime) Medical Record Reviewed: Yes (reports, notes, vitals, labs) Consults ordered or reviewed: medical consultation appreciated see Notes more detailed information Neurology consult appreciated Mental Status Examination - Cognitive Function Orientation: Person, Place, Situation Memory: Impaired Attention: WNL Concentration: WNL Association: WNL Fund of Knowledge: WNL - Mood Mood: Depressed (less), Anxious (less) - Affect Affect: Constricted (some improvement More reactive today) - Speech Speech: Soft - Formal Thought Process Formal Thought Process: Hallucinations ( "you're no good, hurt yourself") - Suicidal Ideation Suicidal Ideation: No - Homicidal Ideation Homicidal Ideation: No Goal/Treatment Plan - Goal/Treatment Plan Need for Continued Stay: Remain at risks for inpatient hospitalization, Severe depression anxiety, Discharge may exacerbated symptoms, Severe functional impairment Progress Toward Problem(s) and Goals/Treatment Plan: milieu, structure, supportive therapy Ferrous Sulfate [Feosol] 324 mg PO TID Folic Acid 1 mg PO DAILY Mirtazapine 45 mg mg PO HS ffor major depressive disorder and insomnia Multimineral/Multivitamin PO DAILY QUEtiapine [Seroquel] 300 mg at the morning time and 400 mg at the nighttime for psychotic symptoms Thiamine 100 mg PO DAILY Keppra 750 mg PO BID for seizures Medical follow up 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
[2016-07-27 06:58] VITALS: BP 128/89; PULSE 73; TEMP 98.3
[2016-07-27] MEDS: Multivitamin Therapeutic Tab PO SCH (08:14)
--- NOTE | 2016-07-28 16:26 | PCM.PYCHDC ---
Mental Status Examination - Mental Status Examination Orientation: Person, Place, Situation, Time Memory: Intact Mood: Neutral Affect: Constricted (but reactive, mood congruent) Speech: Appropriate Attention: WNL Concentration: WNL Association: WNL Fund of Knowledge: Poor Formal Thought Process: No Impairment (patient complain of hearing voices, but does not appeared to be internally preoccupied, does not appear to have psychotic symptoms) Description of patient's judgement and insight: Pt has improved insight into mental and medical illness, pt was compliant with medications and unit rules and regulations, pt was going to groups, was calm, cooperative, socially appropriate, no behavioral incidents, no agitation, no aggression. Psychotic Thoughts and Behaviors: Pt denied v/a/t hallucinations, denied paranoid ideations, pt does not appear to be psychotic, and thought process is goal directed. Suicidal Ideation: No Current Homicidal Ideation?: No Plan: pt adamantly denied thoughts of harming self or others denied intent or plan. Discharge Summary - Discharge Note Reason for Hospitalization: pt was transferred from the medical floor for evaluation and stabilization of depressive symptoms, possible psychosis, possible thoughts of harming self. Psychiatric History (includes Medical, Family, Personal Hx): see HPI Laboratory Data: Lab Results 07/16/16 07:30: Fasting Glucose 86, Triglycerides 57, Cholesterol 134, LDL Cholesterol Direct 55, HDL Cholesterol 47 07/16/16 06:55: RPR Nonreactive Vital Signs Temp Pulse Resp BP 07/27/16 06:58 98.3 F 73 20 128/89 07/26/16 16:00 76 114/80 07/26/16 07:48 98.2 F 89 20 114/80 07/25/16 18:32 85 119/81 07/25/16 07:36 98.3 F 65 20 124/86 07/24/16 22:00 71 106/72 07/24/16 16:31 71 106/72 07/24/16 08:53 98.1 F 67 18 130/94 H 07/23/16 16:00 74 102/69 07/23/16 06:00 98.3 F 77 20 119/87 07/22/16 16:00 80 112/73 07/22/16 10:24 98.4 F 88 20 124/85 07/21/16 16:00 95 H 140/85 07/21/16 07:07 98.4 F 72 20 118/84 07/20/16 16:00 76 115/78 07/20/16 06:00 98.4 F 70 20 100/62 07/19/16 06:00 98.1 F 70 20 116/82 07/18/16 16:00 75 122/90 07/18/16 07:00 98.2 F 75 18 107/74 07/17/16 16:00 73 111/72 07/17/16 07:00 98.1 F 65 20 109/77 07/16/16 07:40 97.8 F 66 20 114/76 07/16/16 07:38 97.8 F 66 20 Consultations:: List each consultation separately and include: 1. Reason for request. 2. Findings. 3. Follow-up Consultations: medical consultation appreciated see Notes more detailed information Neurology consult appreciated Summary of Hospital Course include:: 1. Description of specific treatment plan utilized for patients during their course of treatmen. 2. Summarize the time- course for resolution of acute symptoms and/or regressed behaviors. 3. Describe issues identified and worked on during hospitalization. 4. Describe medication utilized. 5. Describe medical problems identified and treated. 6. Reassessment of suicide risk Summary of Hospital Course: shortly patient is 40 year old male, long and debilitating h/o alcohol use disorder, h/o one psychiatric admission to the [facility] in 2016, pt is homeless, no social support, does not work, initially pt was admitted to the medical floor for alcohol withdrawal symptoms (pt was found intoxicated in public, pt also might have withdrawal seizures, pt was in , but refused to go [place] [facility] [place] to go to [facility]), pt reported being depressed, suicidal ideation, pt was on 1:1 for suicide precaution, pt was stabilized from the medical standpoint, was transferred to the psychiatric inpatient unit for further evaluation and stabilization, observation and medication titration. patient presented with fair personal hygiene, fair ADLs. pt said he was not feeling well for the past month, pt was drinking every other day, pt had h/o alcohol withdrawal seizures and ?seizure disorder, pt said because of drinking problems he lost his job "I had seizures at my job, they don 't want me to hit my head or lose money" (pt was working at the [employer]). Pt said he is stressed out about his financial situation, homelessness, drinking problems, medical problems as well as poor support. Pt said he was feeling depressed, hopeless and helpless, pt also reported to have suicidal thoughts to go to the pharmacy and buy sleeping pills and overdose on it. Pt said he hears voices "female and male, they are telling me to kill myself", pt said that he has no urge to harming self and contracted for safety. pt denied feeling anxious. vitals are stable, there is a fine tremor in UE. Past psych h/o: 3 months ago / [facility] for an SI attempt/overdosed on sleeping medication. Pt. also reported taking 31 pills of Remeron last month/ psych. admission with [facility], h/o detoxes and rehabs. Medical h/o: pt has seizure disorder, head trauma, alcohol withdrawals better. Social h/o: pt is homeless, alcoholic, no insurance, no family. pt denied using drugs, denied smoking Lab Results 07/16/16 07:30: Fasting Glucose 86, Triglycerides 57, Cholesterol 134, LDL Cholesterol Direct 55, HDL Cholesterol 47 Vital Signs Temp Pulse Resp BP 07/16/16 07:40 97.8 F 66 20 114/76 07/16/16 07:38 97.8 F 66 20 [place] course of this hospitalization patient was stabilized on the following medications: Ferrous Sulfate [Feosol] 324 mg PO TID Folic Acid 1 mg PO DAILY Mirtazapine 45 mg mg PO HS ffor major depressive disorder and insomnia Multimineral/Multivitamin PO DAILY QUEtiapine [Seroquel] 300 mg at the morning time and 400 mg at the nighttime for psychotic symptoms Thiamine 100 mg PO DAILY Keppra 750 mg PO BID for seizures patient was seen by medical team, as well as neurology team please see notes for more detailed information Patient tolerated medications well, no side effects observed or reported. aims 0 no EPS. Over the course of this hospitalization pt was attending groups, pt also had medication management, had therapeutic milieu. Overall pt improved significantly, pt's affect became brighter, pt was less depressed, has realistic future oriented plans, pt also does not appear to be psychotic, or anxious, pt was socially appropriate, no behavioral issues, pts insight improved as well and soon pt deemed to be ready for discharge. At the time of the discharge pt denied been depressed, denied thoughts of harming self or others, denied psychotic symptoms, and pt does not appeared to be psychotic, denied been anxious, was considered to pose no threat to self or others, will be following up with outpatient provider, information about follow up appointment, time and address provided to the pt, it is patient responsibility to follow up with outpatient clinic, PMD as well as specialists ( see note for more detailed information). In case pt will need to obtain results of studies pending at discharge pt was provided with contact information of Psychiatric Inpatient unit [phone] as well as Medical Record Department [phone]. Counseling about alcohol cessation provided AA meetings treatment program information was provided by the pt does not want to be on naltrexone pt was provided with prescriptions for all of pt's meds (please see medication reconciliation form for more detailed information). Pt was educated about safety plan in case of worsening of symptoms or in case of suicidal or homicidal ideation call 911 or go to the nearest ER, also was educated to take meds as prescribed and stay away from drugs, pt verbalized understanding. - Diagnosis (1) Substance induced mood disorder Status: Acute (2) Alcohol use disorder Status: Acute - Final Diagnosis (DSM 5) Condition upon Discharge: GOOD DSM 5: rule out major depressive disorder Alcohol use disorder Alcohol withdrawal delirium Rule out mood disorder due to general medical condition ( patient has seizure disorder) Disposition: HOME/ ROUTINE Follow-up Treatment Plan: At the time of the discharge pt denied been depressed, denied thoughts of harming self or others, denied psychotic symptoms, and pt does not appeared to be psychotic, denied been anxious, was considered to pose no threat to self or others, will be following up with outpatient provider, information about follow up appointment, time and address provided to the pt, it is patient responsibility to follow up with outpatient clinic, PMD as well as specialists ( see note for more detailed information). In case pt will need to obtain results of studies pending at discharge pt was provided with contact information of Psychiatric Inpatient unit [phone] as well as Medical Record Department [phone]. Counseling about alcohol cessation provided AA meetings treatment program information was provided by the pt does not want to be on naltrexone pt was provided with prescriptions for all of pt's meds (please see medication reconciliation form for more detailed information). Pt was educated about safety plan in case of worsening of symptoms or in case of suicidal or homicidal ideation call 911 or go to the nearest ER, also was educated to take meds as prescribed and stay away from drugs, pt verbalized understanding. Prescriptions/Medication Reconciliation: Folic Acid 1 mg PO DAILY #14 tab Levetiracetam [Keppra] 750 mg PO BID #14 tab Mirtazapine [Remeron] 45 mg PO HS #14 tab Quetiapine Fumarate [Seroquel] 300 mg PO DAILY #14 tablet Quetiapine Fumarate [Seroquel] 400 mg PO HS #14 tablet Multivitamin Therapeutic Tab [Thera Tab] 1 tab PO DAILY #14 tab Thiamine [Vitamin B1 Tab] 100 mg PO DAILY #14 tab - Smoking Cessation Smoking Cessation Medication prescribed: No Reason for not providing: patient doesn't smoke - Antipsychotic Medications Pt discharged on 2 or more routine antipsychotic medications: No
== END 2016-07-27 13:31 | disposition home or self-care (01) | DRG 426 ==
LOC: PSYC 15:46
PROVIDERS: ADMIT Psychiatry & Neurology Psychiatry; ATTEND Psychiatry & Neurology Psychiatry
PROC: GZ3ZZZZ Medication Management (ICD-10-PCS; principal; 2016-07-15)
DX: F32.9 Major depressive disorder, single episode, unspecified (principal); G40.909 Epilepsy, unspecified, not intractable, without status epilepticus; F10.231 Alcohol dependence with withdrawal delirium; R45.851 Suicidal ideations; F10.24 Alcohol dependence with alcohol-induced mood disorder; Z59.0 Homelessness; G47.00 Insomnia, unspecified; F41.9 Anxiety disorder, unspecified; D50.9 Iron deficiency anemia, unspecified; R41.3 Other amnesia; Z87.828 Personal history of other (healed) physical injury and trauma; Z87.820 Personal history of traumatic brain injury